=== PATIENT | female | born 1970 | race Caucasian/White ===

== ENCOUNTER 2018-11-19 09:25 | Inpatient (IN) | payer OTHER ==
[~2018-11-19] VITALS: Ht 162.6 cm; Wt 49.7 kg
[2018-11-19 10:21] VITALS: Ht 162.6 cm; Wt 49.7 kg
[2018-11-19 11:03] VITALS: BP 109/60; RESP 15
[2018-11-19] MEDS ORDERED: ONDANSETRON 4 MG INJ IV PRN (12:30)
[2018-11-19] MEDS ORDERED: ZOLPIDEM 5 MG TAB PO PRN (12:30)
[2018-11-19] MEDS ORDERED: ACETAMINOPHEN 325 MG TAB PO PRN (12:30)
[2018-11-19] MEDS ORDERED: HYDROCODONE/APAP (5/325) TAB PO PRN (12:30)
[2018-11-19] MEDS ORDERED: NACL 0.9% 3 ML SYG IV SCH (12:30)
[2018-11-19] MEDS ORDERED: TACR1CAP PO (12:50)
[2018-11-19] MEDS ORDERED: PRED25 PO (12:50)
[2018-11-19] MEDS ORDERED: ALPR0.25 PO (12:52)
[2018-11-19] MEDS ORDERED: ACET-2047 PO (12:57)
[2018-11-19] MEDS ORDERED: NYST15CR28 TOP (12:58)
[2018-11-19] MEDS ORDERED: FER325 PO (12:59)
[2018-11-19] MEDS ORDERED: ATOR40TA68 PO (12:59)
[2018-11-19] MEDS ORDERED: ALPRAZOLAM 0.25 MG TAB PO PRN (13:00)
[2018-11-19] MEDS ORDERED: ONDA4TAB13 PO (13:00)
[2018-11-19] MEDS ORDERED: HYDR-4011 PO (13:00)
[2018-11-19] MEDS ORDERED: SODI650T PO (13:01)
[2018-11-19] MEDS: morphine 2 MG INJ IV PRN ×2 (13:06→18:39)
[2018-11-19 13:52] VITALS: BP 133/68; RESP 14
[2018-11-19] MEDS: predniSONE 5 MG TAB PO SCH (14:25)
[2018-11-19] MEDS: 1/2 NS + KCL 20 MEQ 1,000 ML IV SCH ×3 (14:26→23:24)
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
[2018-11-19] MEDS ORDERED: NYSTATIN 15 GM CR TOP SCH (15:30)
[2018-11-19] MEDS: TACROLIMUS 1 MG CAP PO SCH ×2 (16:08→22:09)
[2018-11-19 19:30] VITALS: BP 106/68; PULSE 60; RESP 20
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
[2018-11-19] MEDS: NA BICARBONATE 650 MG TAB PO SCH (22:02)
[2018-11-19] MEDS ORDERED: HYDROCODONE/APAP (10/325) TAB PO PRN (23:00)
[2018-11-19] MEDS: morphine 4 MG/ML VIAL IV PRN (23:18)
[2018-11-20 02:10] VITALS: BP 133/76; PULSE 54; RESP 20
[2018-11-20 07:36] VITALS: BP 137/71; PULSE 57; RESP 18
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
[2018-11-20] MEDS: predniSONE 5 MG TAB PO SCH (09:08)
[2018-11-20] MEDS: TACROLIMUS 1 MG CAP PO SCH ×2 (09:08→21:04)
[2018-11-20] MEDS: NA BICARBONATE 650 MG TAB PO SCH ×2 (09:09→21:04)
[2018-11-20] MEDS: FERROUS SULFATE (EC) 325 MG TAB PO SCH (09:09)
[2018-11-20] MEDS: morphine 4 MG/ML VIAL IV PRN ×2 (09:24→21:11)
[2018-11-20] MEDS: 1/2 NS + KCL 20 MEQ 1,000 ML IV SCH (10:21)
[2018-11-20] MEDS ORDERED: MAGNESIUM SULFATE 3 GM in DEXTROSE 5% 100 ML IVPB ONE (12:00)
[2018-11-20 16:11] VITALS: BP 92/55; PULSE 69; RESP 18
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
[2018-11-20 19:51] VITALS: BP 111/66; PULSE 61; RESP 18
--- NOTE | 2018-11-20 21:20 | CONS ---
Assessment/Plan Assessment/Plan Assessment/Plan (Daily) 1. Pancreatic ductal stone. It is not clear whether the stone is in the ventral duct or in the dorsal duct. Given pancreatic divisum if the stone is in the ventral duct then no need of therapeutic intervention since it is not main draining duct, In a patient with pancreatic divisum If the stone is in dorsal duct or duct of [place] we will just observe since the patient has no symptoms of pancreatitis and besides never had a pancreatitis in the past. The risk of ERCP induced pancreatitis is much higher with a minor ampulla sphincterotomy, so weighing the risk the best option would be to observe the patient unless he develops pancreatitis 2. Diarrhea liquidy stool through the ileostomy bag most probably related to short bowel syndrome. Plan We will start patient on Questran 1 packet twice daily. Consultation Date/Type/Reason Admit Date/Time Nov 19, 2018 at 10:00 Initial Consult Date Date/Time of Note DATE: 11/20/18 TIME: 21:16 24 HR Interval Summary Free Text/Dictation Vision is a pain in the right thigh and also near the ileostomy and suprapubic area. There is no pain with epigastric area and not radiating to the back. Patient does not have a classical pancreatitis pain Exam/Review of Systems Exam Vitals Vital Signs Date Temp Pulse Resp B/P (MAP) Pulse Ox O2 O2 Flow FiO2 Time Delivery Rate 11/20/18 98.2 61 18 111/66 98 19:51 (81) 11/20/18 Room Air 16:11 Intake and Output 11/19/18 11/19/18 11/20/18 1515:00 23:00 07:00 IntakeIntake Total 700 ml 1750 ml OutputOutput Total 150 ml 350 ml BalanceBalance -150 ml 350 ml 1750 ml Constitutional: alert, oriented, well developed Psych: no complaints, nl mood/affect Head: normocephalic, atraumatic Eyes: nl conjunctiva, EOMI, nl lids, nl sclera, PERRL ENMT: nl external ears & nose, nl lips & teeth, nl nasal mucosa & septum Neck: supple, non-tender Respiratory: clear to auscultation, normal air movement Cardiovascular: regular rate and rhythm, nl pulses Gastrointestinal: soft, nl liver, spleen, non-tender Musculoskeletal: nl extremities to inspection, nl gait and stance Extremities: normal pulses Neurological: PARTS COORDINATOR II-XII intact, nl mental status, nl speech, nl strength Skin: nl turgor; No rash or lesions Lymph: nl lymph nodes Results Result Diagram: 11/20/1845811/20/18458 Results 24hrs Laboratory Tests Test 11/20/18 04:59 White Blood Count 4.3 L Red Blood Count 3.56 L Hemoglobin 10.8 L Hematocrit 33.8 L Mean Corpuscular Volume 94.9 Mean Corpuscular Hemoglobin 30.3 Mean Corpuscular Hemoglobin Concent 32.0 Red Cell Distribution Width 12.6 Platelet Count 159 Mean Platelet Volume 11.8 H Immature Granulocytes % 0.200 Neutrophils % 49.3 Lymphocytes % 41.3 Monocytes % 6.6 Eosinophils % 1.9 Basophils % 0.7 Nucleated Red Blood Cells % 0.0 Immature Granulocytes # 0.010 Neutrophils # 2.1 Lymphocytes # 1.8 Monocytes # 0.3 Eosinophils # 0.1 Basophils # 0.0 Nucleated Red Blood Cells # 0.0 Prothrombin Time 12.3 Prothrombin Time Ratio 1.0 INR International Normalized Ratio 0.90 Sodium Level 139 Potassium Level 4.8 Chloride Level 109 Carbon Dioxide Level 26 Anion Gap 4 L Blood Urea Nitrogen 6 L Creatinine 0.70 Est Glomerular Filtrat Rate mL/min > 60 Glucose Level 90 Hemoglobin A1c 5.5 Calcium Level 9.9 Phosphorus Level 3.4 Magnesium Level 1.5 L Total Bilirubin 0.4 Direct Bilirubin 0.00 Indirect Bilirubin 0.4 Aspartate Amino Transf (AST/SGOT) 29 Alanine Aminotransferase (ALT/SGPT) 30 Alkaline Phosphatase 91 Total Protein 5.5 L Albumin 2.9 L Globulin 2.60 Albumin/Globulin Ratio 1.11 Amylase Level 35 Lipase 42 Medications Medication Current Medications Potassium Chloride/Sodium Chloride 1,000 ml @ 100 mls/hr Q10H IV Last administered on 11/20/18at 10:21; Admin Dose 100 MLS/HR; Start 11/19/18 at 12:14 IV Flush (NS 3 ml) 3 ml PER PROTOCOL IV ; Start 11/19/18 at 12:30 Ondansetron HCl (Zofran Inj) 4 mg Q6H PRN IV NAUSEA/VOMITING; Start 11/19/18 at 12:30 Acetaminophen (Tylenol Tab) 650 mg Q6H PRN PO .PAIN 1-3 OR TEMP; Start 11/19/18 at 12:30 Acetaminophen/ Hydrocodone Bitart ([place] (5/325)) 1 tab Q6H PRN PO .MOD PAIN 4- 6; Start 11/19/18 at 12:30 Zolpidem Tartrate (Ambien) 5 mg QHS PRN PO .INSOMNIA; Start 11/19/18 at 12:30 Alprazolam (Xanax) 0.25 mg Q8H PRN PO ANXIETY; Start 11/19/18 at 13:00 Ferrous Sulfate (Ferrous Sulfate (Ec)) 325 mg DAILY PO Last administered on 11/20/18 09:09; Admin Dose 325 MG; Start 11/20/18 at 09:00 Prednisone (Prednisone) 5 mg DAILY PO Last administered on 11/20/18 09:08; Admin Dose 5 MG; Start 11/19/18 at 14:00 Sodium Bicarbonate (Sodium Bicarbonate Tab) 650 mg BID PO Last administered on 11/20/18 21:04; Admin Dose 650 MG; Start 11/19/18 at 21:00 Tacrolimus (Prograf) 1 mg Q12 PO Last administered on 11/20/18at 21:04; Admin Dose 1 MG; Start 11/19/18 at 15:30 Morphine Sulfate (morphine) 3 mg Q4H PRN IV .SEVERE PAIN 7-10 Last administered on 11/20/18 21:11; Admin Dose 3 MG; Start 11/19/18 at 23:00 Acetaminophen/ Hydrocodone Bitart ([place] (10/325)) 1 tab Q6H PRN PO MODERATE PAIN LEVEL 4-6; Start 11/19/18 at 23:00 THOMAS BEARD MD Nov 20, 2018 21:20
[2018-11-21] MEDS: 1/2 NS + KCL 20 MEQ 1,000 ML IV SCH ×2 (01:24→11:20)
[2018-11-21 01:32] VITALS: BP 131/76; PULSE 60; RESP 18
[2018-11-21 08:56] VITALS: BP 104/65; PULSE 57; RESP 18
[2018-11-21] MEDS ORDERED: CHOLESTYRAMINE (LIGHT) 4 GM PACKET PO SCH (09:00)
[2018-11-21] MEDS: predniSONE 5 MG TAB PO SCH (09:10)
[2018-11-21] MEDS: NA BICARBONATE 650 MG TAB PO SCH (09:10)
[2018-11-21] MEDS: TACROLIMUS 1 MG CAP PO SCH (09:10)
[2018-11-21] MEDS: FERROUS SULFATE (EC) 325 MG TAB PO SCH (09:11)
[2018-11-21] MEDS: morphine 4 MG/ML VIAL IV PRN (09:21)
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
[2018-11-21] MEDS ORDERED: CHOL4PAC PO (11:22)
--- NOTE | 2018-11-21 11:23 | PDOCDIS ---
Discharge Instructions CONDITION [id number] Patient Condition: Izlir2l Good HOME CARE INSTRUCTIONS: [id number] Diet Instructions: [id number] Regular ACTIVITY: [id number] Activity Restrictions: [id number] No Restrictions FOLLOW UP/APPOINTMENTS Follow-up Plan FOLLOW UP WITH YOUR PCP IN 1-2 WEEKS IRWIN RAMIREZ Nov 21, 2018 11:23
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
--- NOTE | 2018-11-21 17:37 | CONS ---
Assessment/Plan Assessment/Plan Assessment/Plan (Daily) Assessment/Plan Assessment/Plan (Daily) 1. Pancreatic ductal stone. It is not clear whether the stone is in the ventral duct or in the dorsal duct. Given pancreatic divisum if the stone is in the ventral duct then no need of therapeutic intervention since it is not main draining duct, In a patient with pancreatic divisum If the stone is in dorsal duct or duct of [place] we will just observe since the patient has no symptoms of pancreatitis and besides never had a pancreatitis in the past. The risk of ERCP induced pancreatitis is much higher with a minor ampulla sphincterotomy, so weighing the risk the best option would be to observe the patient unless he develops pancreatitis 2. Diarrhea liquidy stool through the ileostomy bag most probably related to short bowel syndrome. Plan We will start patient on Questran 1 packet twice daily. EUS as OP,discussed with pt. and has agreed Consultation Date/Type/Reason Admit Date/Time Nov 19, 2018 at 10:00 Initial Consult Date Date/Time of Note DATE: 11/21/18 TIME: 17:35 24 HR Interval Summary Constitutional: improved Exam/Review of Systems Exam Vitals Vital Signs Date Temp Pulse Resp B/P (MAP) Pulse Ox O2 O2 Flow FiO2 Time Delivery Rate 11/21/18 98.3 57 18 104/65 99 Room Air 08:56 (78) Intake and Output 11/20/18 11/20/18 11/21/18 1515:00 23:00 07:00 IntakeIntake Total 950 ml 1606 ml 650 ml OutputOutput Total 850 ml 550 ml 200 ml BalanceBalance 100 ml 1056 ml 450 ml Constitutional: alert, oriented, well developed Psych: no complaints, nl mood/affect Head: normocephalic, atraumatic Eyes: nl conjunctiva, EOMI, nl lids, nl sclera, PERRL ENMT: nl external ears & nose, nl lips & teeth, nl nasal mucosa & septum Neck: supple, non-tender Respiratory: clear to auscultation, normal air movement Cardiovascular: regular rate and rhythm, nl pulses Gastrointestinal: soft, nl liver, spleen, non-tender Musculoskeletal: nl extremities to inspection, nl gait and stance Extremities: normal pulses Neurological: TOBACCO GROWER II-XII intact, nl mental status, nl speech, nl strength Skin: nl turgor; No rash or lesions Lymph: nl lymph nodes Results Result Diagram: 11/20/18 0459 11/20/18 0459 THOMAS BEARD MD Nov 21, 2018 17:37
== END 2018-11-21 13:47 | disposition home or self-care (01) | DRG 439 ==
LOC: MS1 10:00
PROVIDERS: ADMIT Internal Medicine; ATTEND Internal Medicine
DX: K86.89 Other specified diseases of pancreas (principal); E87.2 Acidosis; Z94.0 Kidney transplant status; G81.94 Hemiplegia, unspecified affecting left nondominant side; K91.2 Postsurgical malabsorption, not elsewhere classified; D64.9 Anemia, unspecified; N18.9 Chronic kidney disease, unspecified; Z93.2 Ileostomy status
CPT/HCPCS: 80048; 80053; 82150; 83036; 83690; 83735; 84100; 85025; 85610; J2270; J3475; J3480; J7507; J7512